=== PATIENT | male | born 1965 | race African-American/Black ===

== ENCOUNTER 2017-10-14 21:07 | Emergency (ER) | payer OTHER ==
[2017-10-14 21:16] VITALS: BMI 36.3
--- NOTE | 2017-10-14 23:17 | PDOC ---
History of Present Illness - General Chief Complaint: Injury Stated Complaint: FALL Time Seen by Provider: 10/14/17 23:13 - History of Present Illness Initial Comments: 10/14/17 23:51 The patient is a 52 year old male with a history of cerebral palsy who presents for evaluation following a fall at his [facility]. The patient is accompanied by his aid who assists in providing the history. They report that the patient had a mechanical fall today while in the bathroom with reported head trauma prompting the patient's presentation to the ED for further evaluation. They deny LOC and the patient is currently asymptomatic and not complaining of headache. ROS is limited due to the patient's cerebral palsy. Past History - Past Medical History Allergies/Adverse Reactions: Allergies Allergy/AdvReac Type Severity Reaction Status Date / Time No Known Allergies Allergy Verified 10/14/17 21:15 COPD: No Thyroid Disease: Yes Other medical history: Cerebral Palsy - Suicide/Smoking/Psychosocial Hx Smoking History: Never smoked Review of Systems - Review of Systems Able to Perform ROS?: No (Cerebral Palsy) *Physical Exam - Vital Signs Last Vital Signs Temp Pulse Resp BP Pulse Ox 98.2 F 98 H 18 121/91 93 L 10/14/17 21:12 10/14/17 21:12 10/14/17 21:12 10/14/17 21:12 10/14/17 21:12 - Physical Exam Comments: 10/14/17 23:59 General Appearance: Nourished. No Apparent Distress HEENT: EOMI, BRITTANY. Abrasions noted to the scalp. No Pharyngeal Erythema, Tonsillar Exudate, Tonsillar Erythema Neck: No Cervical Lymphadenopathy or C-spine Tenderness. Normal ROM Respiratory/Chest: Lungs Clear, Normal Breath Sounds. No Crackles, Rales, Rhonchi, Wheezing Cardiovascular: Regular Rhythm, Regular Rate. No Murmur, Gallops, Rubs Gastrointestinal/Abdominal: Normal Bowel Sounds, Soft. No Guarding, Rebound, Tenderness Musculoskeletal: No CVA Tenderness Extremity: Normal Capillary Refill Integumentary: Normal Color, Dry, Warm Neurologic: Alert, Normal Mood/Affect, Normal Response for condition. At Baseline Mentally. Medical Decision Making - Medical Decision Making 10/15/17 00:00 The patient is a 52 year old male with a history of cerebral palsy who presents for evaluation following a fall at his [facility]. Differential includes but is not limited to: Intracranial process, Fracture, Contusion. We obtain a head CT to evaluate for any intracranial process and it is unremarkable. We updated the patient's tetanus here in the ED. The patient appears clinically well on exam and is at his baseline mentally. We are comfortable discharging the patient home at this time. We discussed the results, plan, and return precautions with the patient's aid who voiced understanding and is agreeable with the plan. *DC/Admit/Observation/Transfer Diagnosis at time of Disposition: Fall Qualifiers: Encounter type: initial encounter Qualified Code(s): W19.XXXA - Unspecified fall, initial encounter - Discharge Dispostion Disposition: HOME Condition at time of disposition: Stable Decision to Admit order: No - Referrals - Patient Instructions Printed Discharge Instructions: DI for Post-traumatic Headache, How to Prevent Falls Additional Instructions: Please return to the ER if you experience concerning or worsening symptoms including worsening pain, headache, or vomiting. Your CT scan was normal here in the ER. It is important that you call to schedule a follow up appointment with your primary care provider within 2-3 days to discuss your ER visit and further management of your symptoms. - Post Discharge Activity
[2017-10-14] MEDS ORDERED: DIPHTH,PERTUSS(ACELL),TET 0.5 ML DISP.SYRIN IM ONE (23:28)
[2017-10-14] MEDS ORDERED: BACITRACIN 15 GM TUBE TOPICAL OINTMENT TP ONE (23:53)
--- NOTE | 2017-10-15 00:18 | PDOC ---
Attending Attestation - Medical Decision Making 10/15/17 00:18 EXAM: HEAD CT WITHOUT CONTRAST HISTORY: Trauma COMPARISON: None. FINDINGS: The ventricular system is midline and nondilated. The sulcal pattern is normal for the patient's age. There is no bleed, mass, extra-axial fluid collection or mass effect. No skull fracture or skull lesion is identified. The visualized paranasal sinuses and mastoid air cells are clear. IMPRESSION: Normal exam. Read by: Dev Galindo MD <Lisseth Bang - Last Filed: 10/15/17 00:18> - Resident Resident Name: Rajinder Adorno - ED Attending Attestation I have performed the following: I have examined & evaluated the patient, The case was reviewed & discussed with the resident, I agree w/resident's findings & plan - HPI HPI: 10/15/17 22:37 Pt fell in the NH, and now has scratches to the left side of his head. Pt has no complaints. He is his usual self, affable and active. Pt is MR and no verbal, but he has no complaints. - Physicial Exam PE: 10/15/17 22:36 Agree with resident exam Pt has no c spine tenderness <Marissa Yañez - Last Filed: 10/15/17 22:38> Attestations - Attestations 10/15/17 00:18 Documentation prepared by Lisseth Bang, acting as director medical science for Marissa Yañez MD. <Lisseth Bang - Last Filed: 10/15/17 00:18>
[2017-10-15] MEDS ORDERED: BACITRACIN 0.9 GM PACKET ONE (00:59)
[2017-10-15 03:24] VITALS: BP 115/72; PULSE 68; TEMP 97.9
== END 2017-10-15 01:15 | disposition home or self-care (01) ==
LOC: JER 21:07
PROC: 3E0234Z Introduction of Serum, Toxoid and Vaccine into Muscle, Percutaneous Approach (ICD-10-PCS; principal; 2017-10-14)
DX: G44.309 Post-traumatic headache, unspecified, not intractable (principal); S00.01XA Abrasion of scalp, initial encounter; W18.39XA Other fall on same level, initial encounter; Y93.E8 Activity, other personal hygiene; Y92.192 Bathroom in other specified residential institution as the place of occurrence of the external cause; Y99.8 Other external cause status; G80.9 Cerebral palsy, unspecified
CPT/HCPCS: 70450-TC; 90471; 90715; 99281-25